=== PATIENT | female | born 1950 | race Caucasian/White ===

== ENCOUNTER → 2016-11-27 | Outpatient (CLI) | payer BC ==
--- NOTE | 2016-11-27 16:23 | TR ---
Date Performed: 11/27/2016 Time Performed: 13:38:48 DOCTOR: Adelaida Lua DRUG LIST: CLINICAL HISTORY: REASON FOR TEST: SOB/CHEST PRESSURE REASON FOR ENDING: OBSERVATION: CONCLUSION: LALITA PROTOCOL ETT. NO CP. TEST STOPPED AFTER REACHING GOAL HR SECONDARY TO SOB AND LEG FATIGUE.Maximum SI=005 % Max HR Achieved=85.0% Resting KH=935/82 Total Exercise Time=2:42 COMMENTS:
== END ==
LOC: HCAV 11:51
PROVIDERS: ATTEND Allergy & Immunology
DX: R07.9 Chest pain, unspecified (principal)
CPT/HCPCS: 93017